=== PATIENT | female | born 1990 | race Caucasian/White ===

== ENCOUNTER 2019-08-13 15:08 | Inpatient (IN) | payer OTHER ==
[~2019-08-13] VITALS: Ht 149.9 cm; Wt 78.0 kg
[2019-08-13] MEDS ORDERED: SYNTHROID100 MCG (15:23)
[2019-08-13] MEDS ORDERED: FORTAMET1000 MG (15:23)
[2019-08-13] MEDS ORDERED: WELLBUTRIN SR100 MG (15:25)
[2019-08-13] MEDS ORDERED: SYNTHROID125 MCG (15:26)
== END 2019-08-15 12:38 | disposition home or self-care (01) | DRG 101 ==
LOC: ER 15:08 → MEDI 20:47 → SEC-K 20:47 → MEDJ 23:11 → MEDI 23:11
PROVIDERS: ADMIT Internal Medicine; ATTEND Internal Medicine
PROC: BW28ZZZ Computerized Tomography (CT Scan) of Head (ICD-10-PCS; principal; 2019-08-13)
PROC: B030ZZZ Magnetic Resonance Imaging (MRI) of Brain (ICD-10-PCS; 2019-08-13)
DX: G40.89 Other seizures (principal); L63.0 Alopecia (capitis) totalis; Q90.9 Down syndrome, unspecified; E03.8 Other specified hypothyroidism; E66.8 Other obesity; E11.69 Type 2 diabetes mellitus with other specified complication
CPT/HCPCS: 70544